=== PATIENT | male | born 1990 | race Two or more races ===

== ENCOUNTER 2017-10-06 07:17 | Day surgery (SDC) | payer OTHER ==
[2017-10-06 07:37] VITALS: BMI 24.5
[2017-10-06] MEDS ORDERED: PROPOFOL 20 ML ONE (07:38)
[2017-10-06 08:02] VITALS: TEMP 98
[2017-10-06 09:01] VITALS: BP 105/61; PULSE 65
== END 2017-10-06 09:00 | disposition home or self-care (01) ==
LOC: FASU 07:17
PROVIDERS: ATTEND Internal Medicine Gastroenterology
PROC: 0DJD8ZZ Inspection of Lower Intestinal Tract, Via Natural or Artificial Opening Endoscopic (ICD-10-PCS; principal; 2017-10-06 08:33)
DX: K62.5 Hemorrhage of anus and rectum (principal); K64.8 Other hemorrhoids